=== PATIENT | female | born 1980 | race American Indian/Alaskan Native ===

== ENCOUNTER 2017-01-13 10:44 | Outpatient (CLI) | payer MEDICARE | END 2017-01-13 10:45 | disposition home or self-care (01) | LOC: LAB 10:44 | PROVIDERS: ATTEND Radiology Diagnostic Radiology | DX: O09.00 Supervision of pregnancy with history of infertility, unspecified trimester (principal); Z3A.00 Weeks of gestation of pregnancy not specified | CPT/HCPCS: 36415; 84702 ==

== ENCOUNTER → 2017-02-10 | Outpatient (CLI) | payer MEDICARE | LOC: LAB 11:45 | PROVIDERS: ATTEND Radiology Diagnostic Radiology | DX: O09.01 Supervision of pregnancy with history of infertility, first trimester (principal); Z3A.10 10 weeks gestation of pregnancy | CPT/HCPCS: 36415; 84702 ==

== ENCOUNTER 2017-04-14 12:23 | Emergency (ER) | payer OTHER, MEDICARE ==
[2017-04-14 15:19] VITALS: BP 117/64
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
== END 2017-04-14 16:34 | disposition home or self-care (01) ==
LOC: ED 12:23
DX: S16.1XXA Strain of muscle, fascia and tendon at neck level, initial encounter (principal); V49.9XXA Car occupant (driver) (passenger) injured in unspecified traffic accident, initial encounter; Y93.89 Activity, other specified; Y99.9 Unspecified external cause status; Y92.410 Unspecified street and highway as the place of occurrence of the external cause
CPT/HCPCS: 36415; 70450; 72125; 84702; 99284

== ENCOUNTER 2017-08-13 01:34 | Emergency (ER) | payer MEDICARE ==
[2017-08-13 03:17] LABS: Hematocrit 38.3 % (30.3-42.9); Hemoglobin 12.9 gm/dl (10.1-14.3); Mean Corpuscular HGB Conc 34 % (30-34); Mean Corpuscular Hemoglobin 30 pg (28-32); Mean Corpuscular Volume 89 fl (79-97); Platelet Count 208 K/mm3 (140-440); Red Blood Count 4.32 M/mm3 (3.65-5.03); Red Cell Distribution Width 13.4 % (13.2-15.2); White Blood Count 6.8 K/mm3 (4.5-11.0)
[2017-08-13 03:31] LABS: Anion Gap 19 mmol/L; BUN/Creatinine Ratio 14; Blood Urea Nitrogen 11 mg/dL (7-17); Calcium 9.1 mg/dL (8.4-10.2); Carbon Dioxide 25 mmol/L (22-30); Chloride 102.2 mmol/L (98-107); Glucose 124 mg/dL (65-100); Sodium 142 mmol/L (137-145)
[2017-08-13 03:33] LABS: Basophils % (Auto) 0.5 % (0.0-1.8); Eosinophils % (Auto) 2.2 % (0.0-4.3)
--- NOTE | 2017-08-13 10:17 | Emergency Department Report ---
ED Abdominal Pain HPI - General Chief Complaint: Nausea/Vomiting/Diarrhea Stated Complaint: COUGH Time Seen by Provider: 08/13/17 10:15 Source: patient Mode of arrival: Ambulatory Limitations: No Limitations - History of Present Illness Initial Comments: Patient presents with a flulike illness. When asked if anybody else is sick at home she states "not yet". She's had some minimal diarrhea nausea and vomiting and nonproductive cough. He has been somewhat achy. She does not report any fever or chills. She does not report any difficulty with urinating. She does not complain of abdominal pain. -: days(s) Associated Symptoms: nausea, vomiting, diarrhea - Related Data Home Medications Medication Instructions Recorded Confirmed Last Taken Pnv No.95/Ferrous Fum/Folic AC 1 tab PO DAILY 04/14/17 04/14/17 Unknown [ Caplet] Previous Rx's Medication Instructions Recorded Last Taken Type HYDROcodone/APAP 5-325 [[place] 1 each PO Q6HR PRN #30 tablet 04/14/17 Unknown Rx 5/325] Ondansetron [Zofran Odt] 4 mg PO Q6H PRN #7 tab.rapdis 08/13/17 Unknown Rx traMADol [Ultram] 50 mg PO Q6HR PRN #10 tablet 08/13/17 Unknown Rx Allergies Allergy/AdvReac Type Severity Reaction Status Date / Time No Known Allergies Allergy Unverified 06/14/14 15:45 ED Review of Systems ROS: Stated complaint: COUGH Other details as noted in HPI Constitutional: denies: chills, fever Eyes: denies: eye pain, eye discharge, vision change ENT: throat pain (some sore throat). denies: ear pain Respiratory: cough. denies: shortness of breath, wheezing Cardiovascular: denies: chest pain, palpitations Endocrine: no symptoms reported Gastrointestinal: as per HPI, nausea, vomiting, diarrhea. denies: abdominal pain Genitourinary: denies: urgency, dysuria, discharge Musculoskeletal: denies: back pain, joint swelling, arthralgia Skin: denies: rash, lesions Neurological: denies: headache, weakness, paresthesias Psychiatric: denies: anxiety, depression Hematological/Lymphatic: denies: easy bleeding, easy bruising ED Past Medical Hx - Past Medical History Previous Medical History?: No - Surgical History Past Surgical History?: Yes Additional Surgical History: x1. tubal ligation. tubal reseveral on January 16, 2016 - Social History Smoking Status: Never Smoker Substance Use Type: None - Medications Home Medications: Home Medications Medication Instructions Recorded Confirmed Last Taken Type HYDROcodone/APAP 5-325 [[place] 1 each PO Q6HR PRN #30 tablet 04/14/17 Unknown Rx 5/325] Pnv No.95/Ferrous Fum/Folic AC 1 tab PO DAILY 04/14/17 04/14/17 Unknown History [ Caplet] Ondansetron [Zofran Odt] 4 mg PO Q6H PRN #7 tab.rapdis 08/13/17 Unknown Rx traMADol [Ultram] 50 mg PO Q6HR PRN #10 tablet 08/13/17 Unknown Rx ED Physical Exam - General Limitations: No Limitations General appearance: alert, in no apparent distress, other (mildly dehydrated) - Head Head exam: Present: atraumatic, normocephalic - Eye Eye exam: Present: normal appearance, PERRL, EOMI. Absent: scleral icterus - ENT ENT exam: Present: mucous membranes moist - Neck Neck exam: Present: normal inspection. Absent: tenderness, meningismus - Respiratory Respiratory exam: Present: normal lung sounds bilaterally. Absent: respiratory distress - Cardiovascular Cardiovascular Exam: Present: regular rate, normal rhythm. Absent: systolic murmur, diastolic murmur, rubs, gallop - GI/Abdominal GI/Abdominal exam: Present: soft, normal bowel sounds. Absent: distended, tenderness, guarding, rebound, rigid - Extremities Exam Extremities exam: Present: normal inspection. Absent: calf tenderness - Back Exam Back exam: Present: normal inspection. Absent: CVA tenderness (R), CVA tenderness (L) - Neurological Exam Neurological exam: Present: alert, oriented X3, CN II-XII intact. Absent: motor sensory deficit - Psychiatric Psychiatric exam: Present: normal affect, normal mood - Skin Skin exam: Present: warm, dry, intact, normal color. Absent: rash ED Course Vital Signs 08/13/17 02:31 Temperature 99.0 F Pulse Rate 90 Respiratory 20 Rate Blood Pressure 117/64 [Right] O2 Sat by Pulse 98 Oximetry ED Medical Decision Making - Lab Data Result diagrams: 08/13/17 02:47 08/13/17 02:47 Laboratory Results - last 24 hr 08/13/17 08/13/17 02:47 02:47 WBC 6.8 RBC 4.32 Hgb 12.9 Hct 38.3 MCV 89 MCH 30 MCHC 34 RDW 13.4 Plt Count 208 Lymph % (Auto) 25.7 Story % (Auto) 6.3 Eos % (Auto) 2.2 Baso % (Auto) 0.5 Lymph # 1.8 Story # 0.4 Eos # 0.2 Baso # 0.0 Seg Neutrophils % 65.3 Seg Neutrophils # 4.6 Sodium 142 Potassium 4.0 Chloride 102.2 Carbon Dioxide 25 Anion Gap 19 BUN 11 Creatinine 0.8 Estimated GFR > 60 BUN/Creatinine Ratio 14 Glucose 124 H Calcium 9.1 Laboratory Results - last 24 hr 08/13/17 08/13/17 08/13/17 02:47 02:47 12:20 WBC 6.8 RBC 4.32 Hgb 12.9 Hct 38.3 MCV 89 MCH 30 MCHC 34 RDW 13.4 Plt Count 208 Lymph % (Auto) 25.7 Story % (Auto) 6.3 Eos % (Auto) 2.2 Baso % (Auto) 0.5 Lymph # 1.8 Story # 0.4 Eos # 0.2 Baso # 0.0 Seg Neutrophils % 65.3 Seg Neutrophils # 4.6 Sodium 142 Potassium 4.0 Chloride 102.2 Carbon Dioxide 25 Anion Gap 19 BUN 11 Creatinine 0.8 Estimated GFR > 60 BUN/Creatinine Ratio 14 Glucose 124 H Calcium 9.1 Urine Color Sri Urine Turbidity Clear Urine pH 5.0 Ur Specific [place] 1.039 H Urine Protein 30 mg/dl Urine Glucose (UA) Neg Urine Ketones Tr Urine Blood Neg Urine Nitrite Neg Urine Bilirubin Sm Urine Ictotest Negative Urine Urobilinogen 4.0 Ur Leukocyte Esterase Neg Urine WBC (Auto) 1.0 Urine RBC (Auto) 6.0 U Epithel Cells (Auto) 2.0 Urine Bacteria (Auto) 1+ Urine Mucus 3+ Urine HCG, Qual Negative Critical care attestation.: If time is entered above; I have spent that time in minutes in the direct care of this critically ill patient, excluding procedure time. ED Disposition Clinical Impression: Volume depletion, Viral illness Disposition: DC-01 TO HOME OR SELFCARE Is pt being admited?: No Does the pt Need Aspirin: No Condition: Stable Instructions: Acute Nausea and Vomiting (ED), Dehydration (ED), Viral Syndrome (ED) Additional Instructions: Return any acute change or problems. [facility] with [facility]. Rx as needed for nausea or pain. Return as needed. Prescriptions: Ondansetron [Zofran Odt] 4 mg PO Q6H PRN #7 tab.rapdis PRN Reason: nausea traMADol [Ultram] 50 mg PO Q6HR PRN #10 tablet PRN Reason: Pain Referrals: VANESA DERAS MD [Primary Care Provider] - 3-5 Days [facility] [Provider Group] - 2-3 Days Time of Disposition: 15:09
[2017-08-13] MEDS ORDERED: ZOFRAN IV ONE ×2 (10:24→13:07)
[2017-08-13] MEDS ORDERED: NACL 0.9% 1000 ML 1,000 ML IV ONE (10:24)
[2017-08-13 13:00] LABS: Bacteria,Urine 1+ /HPF (Negative); Bilirubin,Urine SM (Negative); Blood,Urine NEG (Negative); Ketones,Urine TR mg/dL (Negative); Leukocyte Esterase,Urine NEG (Negative); Mucus,Urine 3+ /HPF; Nitrite,Urine NEG (Negative)
--- NOTE | 2017-08-13 13:35 | XRay Report ---
Chest 2 views: History: Cough. Findings: Normal cardiomediastinal silhouette. Trachea is midline. No consolidation, pneumothorax or pleural effusion. Impression: No acute cardiopulmonary findings.
[2017-08-13] MEDS ORDERED: D5NS 1,000 ML IV SCH (14:00)
[2017-08-13 15:20] VITALS: BP 107/65
== END 2017-08-13 16:03 | disposition home or self-care (01) ==
LOC: ED 01:34
DX: B34.9 Viral infection, unspecified (principal); E86.9 Volume depletion, unspecified
CPT/HCPCS: 36415; 71020; 80048; 81001; 81025; 85025; 96361; 96374; 96376; 99284; J2405; J7030; J7042

== ENCOUNTER 2018-02-20 09:54 | Outpatient (CLI) | payer MEDICARE | END 2018-02-20 09:55 | disposition home or self-care (01) | LOC: FLUORO 09:54 | PROVIDERS: ATTEND Obstetrics & Gynecology | DX: N97.1 Female infertility of tubal origin (principal) | CPT/HCPCS: 36415; 84702 ==

== ENCOUNTER 2018-03-10 09:51 | Outpatient (CLI) | payer MEDICARE ==
--- NOTE | 2018-03-15 12:55 | Fluoroscopy Report ---
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 Tubal ligation reversal in 2016 with subsequent miscarriage. COMPARISON: None similar. IMAGES/CINE CLIPS: 12 FINDINGS: Hysterosalpingogram performed with cervix cannulated using standard sterile precautions. Preliminary radiograph demonstrates no significant abnormality. Injection of 20 cc of Omnipaque-300 under fluoroscopy demonstrates normal uterine cavity/contours. Faint opacification of both fallopian tubes, right slightly better than left following peak hand injection pressure decompressing with contrast preferentially passing around the catheter into the vagina. Left fallopian tube also not visualized in its entirety. No hydrosalpinx suspected. No free-flowing intraperitoneal spill noted, best felt loculated on the right till the end of the injection as on image 10. No intraperitoneal spillage identified on the left. CONCLUSION: Normal exam with occluded left fallopian tube and possibly loculated or minimal intraperitoneal spill on the right, as described. Please correlate. Thank you for the opportunity to participate in this patient's care.
== END 2018-03-10 09:52 | disposition home or self-care (01) ==
LOC: FLUORO 09:51
PROVIDERS: ATTEND Obstetrics & Gynecology
DX: N97.1 Female infertility of tubal origin (principal)
CPT/HCPCS: 58340; 74740; Q9967